=== PATIENT | male | born 1960 | race Caucasian/White ===

== ENCOUNTER 2020-02-01 08:43 | Outpatient (CLI) | payer BC, SELFPAY ==
[2020-02-03 22:23] LABS: SARS-CoV-2 RNA PCR Positive
== END 2020-02-01 08:44 | disposition home or self-care (01) ==
PROVIDERS: PCP Nurse Practitioner Family; Visit Provider Nurse Practitioner Family
DX: U07.1 COVID-19 (principal)
CPT/HCPCS: 87635; C9803; U0003

== ENCOUNTER 2021-04-30 01:16 | Day surgery (SDC) | payer BC, SELFPAY ==
[2021-04-17 09:27] VITALS: BMI 31.6
[2021-04-30 11:01] VITALS: BP 138/96; PULSE 95; RESP 18; TEMP 36.6; O2SAT 97; BMI 30.2
--- NOTE | 2021-04-30 11:07 | P.CONGI_ITS ---
Assessment and Plan Assessment and plan (1) Positive colorectal cancer screening using Cologuard test: Code(s): R19.5 - Other fecal abnormalities Status: Acute Assessment and Plan: Patient found to have positive Cologuard test suggesting possible polyp for this reason screening colonoscopy will be performed. GI Consult Note Consult date/time: 04/30/21 11:07 HPI: Db German is a 60 year old male Presents for screening colonoscopy. Patient recently found to have positive Cologuard test. Patient denies any change in bowel habits. His bowel habits are normal. He denies abdominal pain. He has had no bleeding. Family history is noncontributory. Review of Systems Review of Systems: All systems reviewed & are unremarkable except as noted in HPI and below PMFSH Social History Social History Smoking status: Former smoker Tobacco type: smokeless tobacco Smokeless tobacco user: chewing tobacco Alcohol intake: current Drinks per week: 3 Living arrangements: with family Spiritual care concerns: No Meds Home Medications and Allergies Home Medications Medication Instructions Recorded Confirmed Type gabapentin 300 mg PO HS 04/17/21 04/17/21 History Allergies Allergy/AdvReac Type Severity Reaction Status Date / Time No Known Allergies Allergy Verified 04/30/21 11:00 Vital Signs Vital Signs - 24 hr 04/30/21 11:01 Temperature 97.8 F Pulse Rate 95 Respiratory Rate 18 Blood Pressure 138/96 H Pulse Oximetry 97 Exam Narrative: Physical exam reveals patient to be alert. Vital signs stable. HEENT exam is unremarkable. Patient is anicteric. Lungs are clear to auscult ation and percussion. Heart is without murmur or extra sounds. Abdominal exam bowel sounds are present soft nontender with no organomegaly. Digital external rectal exam is normal.
[2021-04-30] MEDS: LACTATED RINGERS 1,000 ML 150 ML IV CONT (11:13)
--- NOTE | 2021-04-30 11:18 | WPDANESEPPF ---
Anes - Initial Pre Proc Eval Procedure: Operation Date: 04/30/21 12:30 Proposed Procedures p Colonoscopy - Rosas Ledesma MD Date/Time: 04/30/21 11:18 Surgeon: Rosas Ledesma MD Pre Op Diagnosis: positive cologuard Patient Data Age: 60 Gender: M Height: 1.78 m Weight: 95.4 kg Last Vital Signs Temp 36.6 C 04/30/21 11:01 Pulse 95 04/30/21 11:01 Resp 18 04/30/21 11:01 BP 138/96 H 04/30/21 11:01 Pulse Ox 97 04/30/21 11:01 Allergies Allergy/AdvReac Type Severity Reaction Status Date / Time No Known Allergies Allergy Verified 04/30/21 11:00 Home Medications Medication Instructions Recorded Confirmed Type gabapentin 300 mg PO HS 04/17/21 04/17/21 History Patient hx anesthesia problems: none Family hx anesthesia problems: none Results Review: All pre-operative results and documents have been reviewed as part of the pre-operative evaluation. [facility] Past Medical History Medical History (Updated 04/30/21 @ 11:18 by Gordon Zhao MD) Obesity Surgical History Surgical History (Updated 04/30/21 @ 11:18 by Gordon Zhao MD) H/O colonoscopy Social History Social History Smoking status: Former smoker Tobacco type: smokeless tobacco Smokeless tobacco user: chewing tobacco Alcohol intake: current Drinks per week: 3 Living arrangements: with family Spiritual care concerns: No Anes - Eval Final PreProcedure Day of Procedure 04/30/21 11:18 Patient weight: obese Heart: regular rate and rhythm Lungs: clear to auscultation Airway: Mallampati scale class 1 Neurological: alert and oriented Last oral intake: >/= 8 hours ASA classification: II Emergent: no Anesthetic plan: proceed Anesthesia type and monitoring: general GIVS and standard monitoring Results Review: All pre-operative results and documents have been reviewed as part of the pre-operative evaluation. Informed Consent: The patient's anesthetic plan and its attendant risks and benefits were discussed with the patient/family/POA. Questions were solicited and answers provided to the satisfaction of the patient/family/POA.
[2021-04-30] MEDS: SIMETHICONE ORAL SUSPENSION 20 MG/0.3 ML 30 ML BOTTLE 0.6 ML IRRIGATION (11:48)
[2021-04-30 11:49] VITALS: BP 112/69; PULSE 77; RESP 28; O2SAT 100
[2021-04-30 11:59] VITALS: BP 121/71; PULSE 74; RESP 20; O2SAT 100
[2021-04-30 12:09] VITALS: BP 124/89; PULSE 66; RESP 20; O2SAT 100
== END 2021-04-30 12:19 | disposition home or self-care (01) ==
PROVIDERS: PCP Nurse Practitioner Family; Visit Provider Internal Medicine Gastroenterology
PROC: 0DJD8ZZ Inspection of Lower Intestinal Tract, Via Natural or Artificial Opening Endoscopic (ICD-10-PCS; CPT 45378; principal; 2021-04-30 12:30)
DX: R19.5 Other fecal abnormalities (principal); K64.8 Other hemorrhoids; K57.30 Diverticulosis of large intestine without perforation or abscess without bleeding; F17.220 Nicotine dependence, chewing tobacco, uncomplicated; E66.9 Obesity, unspecified; Z68.30 Body mass index [BMI] 30.0-30.9, adult
CPT/HCPCS: 45378; J2704; J7120